=== PATIENT | male | born 1965 | race African-American/Black ===

== ENCOUNTER 2021-01-19 15:29 | Emergency (ER) | payer OTHER ==
[~2021-01-19] VITALS: Ht 165.1 cm; Wt 89.8 kg
[2021-01-19 15:47] VITALS: BP 117/62; TEMP 98.5
== END 2021-01-19 16:20 | disposition home or self-care (01) ==
LOC: ED 15:29
DX: B80 Enterobiasis (principal); L29.8 Other pruritus
CPT/HCPCS: 99281

== ENCOUNTER 2021-01-26 08:20 | Emergency (ER) | payer OTHER ==
[~2021-01-26] VITALS: Ht 165.1 cm; Wt 88.0 kg
[2021-01-26 08:24] VITALS: BP 136/61; TEMP 98.4
== END 2021-01-26 09:05 | disposition home or self-care (01) ==
LOC: ED 08:20
DX: L02.31 Cutaneous abscess of buttock (principal); Z79.84 Long term (current) use of oral hypoglycemic drugs
CPT/HCPCS: 82948; 99282